=== PATIENT | female | born 1985 | race Caucasian/White ===

== ENCOUNTER 2016-06-20 16:53 | Emergency (ER) | payer BC ==
[2016-06-20] MEDS ORDERED: NORMAL SALINE 1,000 ML IV PRN (17:17)
--- NOTE | 2016-06-20 17:24 | ERNOTE ---
Medical Problem HPI - Narrative Date of Service: 06/20/16 - General Chief Complaint: Drug Overdose Time Seen by Provider: 06/20/16 17:08 Source: patient, RN notes reviewed Exam Limitations: no limitations - Immun/Allergies/Home Medications Immunizations: IMMUNIZATION HX Immunizations Up to Date Yes History of Influenza Vaccine No Allergies/Adverse Reactions: Allergies No Known Allergies Allergy (Verified 11/13/15 05:03) Home Medications: HOME MEDICATIONS Escitalopram Oxalate [Lexapro] 20 mg PO DAILY 05/01/15 [Last Taken Unknown] ALPRAZolam [Xanax] 1 mg PO TID PRN 11/13/15 [Last Taken Unknown] Acetaminophen with Codeine [Tylenol with Codeine #3 Tablet] 1 each PO Q6H PRN # 14 tab 11/13/15 [Last Taken Unknown] - History of Present History Narrative: Patient presents with intentional overdose. Patient who says she has been upset and depressed, she is under a lot of stress. Prior to going to work she took extra pills of her Xanax. Normally she supposed to take 1 mg 3 times a day , just prior to going to work she took 7-8 tablets at one time, then she took 2- 3 more tablets while at work total of at least 10 mg. She feels very depressed , doesn't feel like she wants to live, she is suicidal with an intention to hurt herself. She does see a psychiatrist they have been working on her medications. She also states for the past week she's been drinking alcohol quite a bit. Patient denies any abdominal pain chest pain headache. She is very upset while in the ER a friend is by here at bedside. Date (Duration): 06/20/16 Timing: constant Review of Systems - Review of Systems Constitutional: Absent: recent illness, fever, chills, diaphoresis EYE: Absent: no symptoms reported ENT: Absent: no symptoms reported Respiratory: Absent: no symptoms reported, shortness of breath, wheezing Cardiology: Absent: chest pain, palpitations, syncope, edema Gastrointestinal/Abdominal: Present: no symptoms reported Genitourinary: Present: no symptoms reported Musculoskeletal: Present: no symptoms reported Skin: Present: no symptoms reported Neurological: Present: anxiety, depressed - suicidal thoughts with intentions to hurt herself, emotional problems Endocrine: Present: no symptoms reported - Patient's Past Medical History Patient History - Medical: No pertinent hx Patient History - Cancer: No Hx of Cancer Patient History - Surgical Procedures: Cholecystectomy LMP (females 10-50): now - Family History Father Family History - Medical: No pertinent hx, Diabetes Type 2 Family History - Cardiac/Respiratory: Hypertension, Hyperlipidemia - Social History Living Situations: significant other Have you smoked in the past 12 months: Yes Do you dip or chew tobacco: No Patient requests Smoking Cessation Consult: No Alcohol Use: heavy Drug Use: none Physical Exam - Physical Exam General Appearance: Present: wd/wn, no apparent distress, crying Eye Exam: Normal inspection: bilateral Ears, Nose, Throat: Present: normal ENT inspection, normal pharynx Neck: Present: normal inspection, nontender, supple, full range of motion Respiratory: Present: no respiratory distress, normal breath sounds, no accessory muscle use, chest nontender, lungs clear Cardiovascular/Chest: Present: regular rate, rhythm, no murmur, normal peripheral pulses Gastrointestinal/Abdominal: Present: normal bowel sounds, nontender, nondistended, soft, no organomegaly Rectal Exam: Present: normal rectal tone Back Exam: Present: normal inspection, normal range of motion, no CVA tenderness , no vertebral tenderness Extremity Exam: Present: normal inspection, non-tender, no edema, normal range of motion Neurological Exam: Present: alert, oriented, no motor/sensory deficits Skin Exam: Present: normal color, warm/dry Lymphatic Exam: Present: no adenopathy ED Progress - Results and Orders Patient's Lab Results:: I have reviewed the patient's lab results. - Vital Signs Patient's Vital Signs:: I have reviewed the patient's vital signs. Vital Signs: Vital Signs 06/20/16 16:56 Temperature 35.7 C L Pulse Rate 114 H Respiratory 16 Rate Blood Pressure 120/91 - EKG EKG: NSR, nonspecific ST T wave changes EKG read: Reviewed by me EKG Comments: Heart rate 95 no acute changes - Progress/Reassessment Chief Complaint: Drug Overdose Progress:: Improved Progress Note-Subjective: 06/20/16 19:44 Patient doing very well. We'll go ahead and medically clear this patient continue to watch her on cardiac rehabilitation program director and then find placement for this patient. Transfer care will be to Dr. Fransisca Kline, patent will need psychiatric evaluation she wants to go voluntarily. If this status changes we may need to get a court committal. - Transfer of Care Receiving Physician: Shannan Nelson Additional Notes: Awaiting for placement for this patient patient very stable Departure - Departure Clinical Impression: Overdose, Suicide attempt Disposition: Other health care facility Condition: Stable
[2016-06-20 17:42] LABS: Hematocrit 42.5 % (37.0-47.0); Hemoglobin 14.3 gm/dL (12.5-16.0); Mean Cell Volume 89.1 fl (78-100); Mean Corpuscular Hgb Conc 33.6 g/dl (32-36); Mean Platelet Volume 11.9 fl (6.0-9.5); Neutrophil # 6.6 K/mm3 (1.3-6.0); Neutrophil % 69.9 % (42-75.0); Platelet Count 174 K/mm3 (150-450); Red Blood Count 4.77 M/mm3 (4.2-5.4); Red Cell Distribution Width 13.2 % (11.5-14.0); White Blood Count 9.4 K/mm3 (4.0-10.5)
[2016-06-20 17:49] LABS: Urine Bilirubin Negative (NEGATIVE); Urine Blood 50 /ul (NEGATIVE); Urine Ketone Negative (NEGATIVE); Urine Nitrite Negative (NEGATIVE); Urine Protein 15 mg/dL (NEGATIVE); Urine Specific Gravity 1.025 SP.GR. (1.005-1.010); Urine Urobilinogen Normal (NORMAL); Urine pH 6.5 pH (5.0-7.0)
[2016-06-20 17:56] LABS: ALT 115 U/L (19-67); AST 69 U/L (0-48); Acetaminophen * 2.2 mcg/mL (10.0-30.0); Alkaline Phosphatase * 64 U/L (50-170); Anion Gap 10.4 mmol/L (6.8-13.8); BUN/Creatinine Ratio 10.6 (9.0-21.6); Bilirubin, Total 0.5 mg/dL (0.0-1.1); Blood Urea Nitrogen 11 mg/dL (3-23); Ca. Corrected For Albumin 8.8 mg/dL (8.4-10.2); Calcium * 9.1 mg/dL (7.9-10.9); Carbon Dioxide 30.3 mmol/L (24-32.6); Chloride 102 mmol/L (97-106); Glucose * 95 mg/dL (70-110); Potassium 3.7 mmol/L (3.4-4.6); Salicylate 4.9 mg/dL (2.8-20.0); Sodium 139 mmol/L (132-142); Total Protein 7.6 gm/dL (6.2-8.2)
[2016-06-20 18:00] LABS: Urine Appearance Clear; Urine Bacteria TRACE; Urine Color Yellow; Urine RBC 0-5 /hpf (0-5); Urine WBC None Seen /hpf (0-5)
[2016-06-20 18:01] LABS: Cocaine Ur Negative (NEGATIVE); Urine Barbiturate Negative (NEGATIVE); Urine Opiates Negative (NEGATIVE); Urine PCP Negative (NEGATIVE); Urine THC Negative (NEGATIVE)
[2016-06-20 18:07] LABS: Urine Benzodiazepines Positive (NEGATIVE)
[2016-06-20] MEDS ORDERED: NICOTINE 21 MG PATC TD SCH (19:15)
[2016-06-20] MEDS ORDERED: NICOTINE 21 MG PATC TD ONE (19:15)
[2016-06-21] MEDS ORDERED: NORMAL SALINE 1,000 ML IV ONE (00:48)
[2016-06-21 08:26] VITALS: BP 138/90
== END 2016-06-21 09:14 | disposition short-term general hospital (02) ==
LOC: ER 16:53
DX: T42.4X2A Poisoning by benzodiazepines, intentional self-harm, initial encounter (principal); R45.851 Suicidal ideations; F17.200 Nicotine dependence, unspecified, uncomplicated; Z90.49 Acquired absence of other specified parts of digestive tract
CPT/HCPCS: 36415; 80053; 80320; 81001; 84443; 84702; 85025; 93005; 94760; 99283; G0479; G0480

== ENCOUNTER 2016-11-01 13:07 | Emergency (ER) | payer BC ==
--- OUTSIDE RECORDS SUMMARY | 2016-11-01 13:47 | XMS REPORT | Continuity of Care Document ---
:1985 Author Organization [employer] [place] [address] Care Team Providers Name Role Phone Unavailable Primary Care Provider Unavailable Source Comments This disclosure is being made pursuant to the [employer] program and maynot contain all information available regarding this patient.[employer] Active Allergies and Adverse Reactions Not on File Current Medications Be aware that medications may not be up to date as of this document. Alwaysverify current medications with the patient. Not on file Active Problems Not on file Social History Tobacco Use Types Packs/Day Years Used Date Never Assessed Plan of Care Health Maintenance Due Date Last Done Comments Tetanus/Pertussis (1 - Tdap) 2005 Pap Smear 2007 Retired-INFLUENZA VACCINE 02/07/2016 Results from Last 3 Months Not on file
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
[2016-11-01 14:08] LABS: Hematocrit 37.4 % (37.0-47.0); Hemoglobin 13.2 gm/dL (12.5-16.0); Mean Cell Volume 88.2 fl (78-100); Mean Corpuscular Hemoglobin 31.1 pg (27-31); Mean Corpuscular Hgb Conc 35.3 g/dl (32-36); Mean Platelet Volume 13.2 fl (6.0-9.5); Neutrophil # 11.2 K/mm3 (1.3-6.0); Neutrophil % 79.2 % (42-75.0); Platelet Count 160 K/mm3 (150-450); Red Blood Count 4.24 M/mm3 (4.2-5.4); Red Cell Distribution Width 13.2 % (11.5-14.0); White Blood Count 14.2 K/mm3 (4.0-10.5)
[2016-11-01 14:21] LABS: Albumin * 3.3 gm/dl (3.4-5.0); Anion Gap 15.5 mmol/L (6.8-13.8); BUN/Creatinine Ratio 7.7 (9.0-21.6); Bilirubin, Total 0.4 mg/dL (0.0-1.1); Ca. Corrected For Albumin 9.6 mg/dL (8.4-10.2); Calcium * 9.4 mg/dL (7.9-10.9); Carbon Dioxide 24.5 mmol/L (24-32.6); Total Protein 7.3 gm/dL (6.2-8.2)
[2016-11-01 15:23] VITALS: BP 122/71
== END 2016-11-01 15:59 | disposition home or self-care (01) ==
LOC: ER 13:07
DX: N83.202 Unspecified ovarian cyst, left side (principal); O46.91 Antepartum hemorrhage, unspecified, first trimester; Z3A.13 13 weeks gestation of pregnancy; Z33.1 Pregnant state, incidental

== ENCOUNTER 2017-02-16 18:05 | Emergency (ER) | payer BC ==
[2017-02-16 18:14] VITALS: BP 125/76
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
[2017-02-16] MEDS ORDERED: hydrOXYzine PAMOATE 25 MG CAPSULE PO ONE ×2 (19:30→19:33)
[2017-02-16] MEDS ORDERED: hydrOXYzine PAMOATE 25 MG CAPSULE ONE ×2 (19:31→19:32)
== END 2017-02-16 19:40 | disposition home or self-care (01) ==
LOC: ER 18:05
DX: O99.343 Other mental disorders complicating pregnancy, third trimester (principal); F17.200 Nicotine dependence, unspecified, uncomplicated; Z3A.29 29 weeks gestation of pregnancy

== ENCOUNTER 2017-04-28 00:02 | Inpatient (IN) | payer BC ==
[2017-04-28] MEDS ORDERED: LIDOCAINE HCL 50 ML VIAL PERI PRN (00:55)
[2017-04-28] MEDS ORDERED: ONDANSETRON HCL/PF 2 MG/ML VIAL IV PRN ×2 (00:55→15:23)
[2017-04-28] MEDS ORDERED: RINGER'S SOLUTION,LACTATED 1,000 ML IV ONE (00:55)
[2017-04-28] MEDS ORDERED: DEXTROSE 5%-LACTATED RINGERS 1,000 ML IV PRN (00:55)
[2017-04-28] MEDS ORDERED: INSULIN REGULAR HUMAN REC 100 UNITS in NORMAL SALINE 100 ML IV PRN (00:55)
[2017-04-28] MEDS ORDERED: PENICILLIN G POTASSIUM 5 MILLIONUNT in DEXTROSE 5 % IN WATER 100 ML IV ONE ×2 (00:55)
[2017-04-28] MEDS ORDERED: OXYTOCIN/DEXTROSE 5%-WATER 30 UNITS/500 ML BAG IV ONE ×2 (00:55→18:27)
[2017-04-28 01:05] LABS: Hemoglobin 12.9 gm/dL (12.5-16.0); Mean Cell Volume 89.4 fl (78-100); Mean Corpuscular Hemoglobin 31.2 pg (27-31); Mean Corpuscular Hgb Conc 34.9 g/dl (32-36); Mean Platelet Volume 14.9 fl (6.0-9.5); Platelet Count 150 K/mm3 (150-450); Red Blood Count 4.14 M/mm3 (4.2-5.4); Red Cell Distribution Width 14.2 % (11.5-14.0); White Blood Count 21.7 K/mm3 (4.0-10.5)
[2017-04-28 01:12] LABS: Total Cells Counted 100
[2017-04-28] MEDS: MISOPROSTOL 100 MCG TABLET VG PRN ×2 (01:21→05:25)
[2017-04-28 01:35] LABS: Cocaine Ur Negative (NEGATIVE); Urine Barbiturate Negative (NEGATIVE); Urine Benzodiazepines Negative (NEGATIVE); Urine Opiates Negative (NEGATIVE); Urine PCP Negative (NEGATIVE); Urine THC Negative (NEGATIVE)
[2017-04-28 01:43] LABS: Atypical (Reactive) Lymph 4 % (0-2); Eosinophil 1 % (0-3); Giant Platelets 2+; Lymphocyte 17 % (20-51); Monocyte 10 % (0-9); Neutrophil 68 % (42-75); Neutrophil # 14.8 K/mm3 (1.3-6.0); Platelet Estimate Normal (NORMAL)
[2017-04-28 01:44] LABS: RBC Morphology Normal (NORMAL)
[2017-04-28] MEDS: PENICILLIN G POTASSIUM 2.5 MILLIONUNT in DEXTROSE 5 % IN WATER 100 ML IV SCH ×6 (06:00→13:59)
--- NOTE | 2017-04-28 09:03 | PN ---
Progess Note - Interim Narrative: 04/28/17 08:57 Patient rating her contractions 3 out of 10 Vital signs stable. Blood sugar 75 Status post 2 doses of Cytotec (last dose at 5:30 AM) FHT: 130 baseline, reassuring Contractions q 1-2 min Cervix: 3/50/-2, Impression: Intrauterine at 39 weeks induction of labor for gestational diabetes. GBS positive-status post 2 doses of penicillin Plan: Continue present plan
[2017-04-28] MEDS ORDERED: NALOXONE HCL 1 MG/1 ML SYRG IV PRN (15:23)
[2017-04-28] MEDS ORDERED: BUPIVACAINE HCL/0.9 % NACL/PF 250 ML EP PRN (15:23)
[2017-04-28] MEDS ORDERED: fentaNYL CITRATE/PF 50 MCG/ML AMPUL IT SCH (15:30)
--- NOTE | 2017-04-28 15:54 | OR ---
Anesthesia Procedure Note - Anesthesia Procedure Note Narrative: Vital Signs - Last Taken Temp Pulse 106 H 04/28/17 15:27 Resp 18 04/28/17 15:27 BP 125/73 04/28/17 15:27 Pulse Ox 98 04/28/17 15:27 04/28/17 15:52 ANESTHESIA PROCEDURE NOTE Date of Procedure: 04/28/2017 Time of procedure: 1540. Performed by: Wisam Blunt CRNA Decorator Mannequin: None. Preprocedure diagnosis: Active labor. Post procedure diagnosis: Same. Procedure: Insertion of labor epidural. Indications: The patient is a 31 -year-old multigravida female in active labor requesting labor epidural for pain management. Findings: See below. Details of the procedure: The patient was placed in a sitting position. Back was prepped with DuraPrep. Patient was then draped in a sterile fashion. Lidocaine 1% was infiltrated to the skin and subcutaneous tissues at the level of the L3 4 interspace. The epidural space was identified using a 18-gauge Tuohy needle with [id number] technique. 20 mcg fentanyl was given intrathecally using a 27 ga. spinal needle. Epidural catheter was inserted without difficulty. Negative test dose was elicited using 5 mL of 1.5% preservative-free lidocaine plus epinephrine 1 200,000. The epidural catheter was then taped and secured in place. EBL: Minimal. Fluids: N/A. Specimen: N/A. Post procedure condition: The patient tolerated the procedure well. No complications were noted. Thank you for this consultation. Solano CRNA
--- NOTE | 2017-04-28 18:24 | OR ---
Operative Report - Dictated Report Narrative: Spontaneous vaginal delivery of viable female at 1803 on 04/27/2017 with Apgars 8 and 8, weighing 3039 g in DEMETRICE position with nuchal cord 1 and foot cord 1. Cord clamping delayed approximately 1 minute Placenta delivered complete, intact, with three vessel cord Estimated blood loss: less than 50 ml Lacerations: None
[2017-04-28] MEDS ORDERED: GLYCERIN/WITCH HAZEL LEAF 40 APPL BOX TP PRN (18:27)
[2017-04-28] MEDS ORDERED: BENZOCAINE/MENTHOL 81 SPRAY CAN TP PRN (18:27)
[2017-04-28] MEDS ORDERED: HYDROCORTISONE 30 APPL TUBE TP PRN (18:27)
[2017-04-28] MEDS ORDERED: oxyCODONE HCL/ACETAMINOPHEN 1 TAB TABLET PO PRN (18:27)
[2017-04-28] MEDS ORDERED: SENNOSIDES 8.6 MG TABLET PO PRN (18:27)
[2017-04-28] MEDS ORDERED: BISACODYL 10 MG SUPP.RECT RC PRN (18:27)
[2017-04-28] MEDS: IBUPROFEN 800 MG TABLET PO PRN (19:03)
[2017-04-28] MEDS: DOCUSATE SODIUM 100 MG CAPSULE PO SCH (21:15)
[2017-04-29] MEDS: oxyCODONE HCL/ACETAMINOPHEN 1 TAB TABLET PO PRN ×2 (01:18→19:53)
[2017-04-29] MEDS ORDERED: FLUoxetine HCL 20 MG CAPSULE PO SCH (09:00)
[2017-04-29] MEDS ORDERED: FOLIC ACID PO SCH (09:00)
[2017-04-29] MEDS ORDERED: CYANOCOBALAMIN PO SCH (09:00)
[2017-04-29] MEDS ORDERED: PRENATAL VITS96/IRON FUM/FOLIC 1 TAB TABLET PO SCH (09:00)
[2017-04-29] MEDS ORDERED: ASCORBIC ACID PO SCH (09:00)
[2017-04-29] MEDS ORDERED: IRON PO SCH (09:00)
[2017-04-29] MEDS ORDERED: Brexpiprazole [Rexulti] 4 MG PO SCH (09:00)
[2017-04-29] MEDS: IBUPROFEN 800 MG TABLET PO PRN (09:32)
[2017-04-29] MEDS: DOCUSATE SODIUM 100 MG CAPSULE PO SCH (09:32)
--- NOTE | 2017-04-29 09:49 | PN ---
Jeramy Note - Interim Narrative: 04/29/17 09:48 progress note Subjective: The patient is doing well. She is ambulating, voiding, tolerating by mouth. She has minimal pain and moderate lochia. Objective: General: No acute distress Abdomen: Soft, nontender, fundus is firm just below the umbilicus Extremities: minimal edema, nontender to palpation Assessment and plan: day 1 Feeding: Bottle Pain: Controlled with by mouth medication Gestational diabetes: Blood sugars within normal limits today, continue to monitor Routine care.
[2017-04-30] MEDS: DOCUSATE SODIUM 100 MG CAPSULE PO SCH (01:08)
[2017-04-30] MEDS: IBUPROFEN 800 MG TABLET PO PRN (06:01)
[2017-04-30 08:00] VITALS: BP 122/58
--- NOTE | 2017-04-30 10:25 | PN ---
Progess Note - Interim Narrative: 04/30/17 10:24 progress note Subjective: The patient is doing well. She is ambulating, voiding, tolerating by mouth. She has minimal pain and moderate lochia. Objective: General: No acute distress Abdomen: Soft, nontender, fundus is firm just below the umbilicus Extremities: minimal edema, nontender to palpation Assessment and plan: day 2 Feeding: Bottle Pain: Controlled with by mouth medication Routine care.
== END 2017-04-30 10:50 | disposition home or self-care (01) | DRG 775 ==
LOC: OB 00:02
PROVIDERS: ADMIT Obstetrics & Gynecology; ATTEND Obstetrics & Gynecology
PROC: 10E0XZZ Delivery of Products of Conception, External Approach (ICD-10-PCS; principal; 2017-04-28)
PROC: 4A1HXCZ Monitoring of Products of Conception, Cardiac Rate, External Approach (ICD-10-PCS; 2017-04-28)
PROC: 00HU33Z Insertion of Infusion Device into Spinal Canal, Percutaneous Approach (ICD-10-PCS; 2017-04-28)
DX: O24.425 Gestational diabetes mellitus in childbirth, controlled by oral hypoglycemic drugs (principal); O99.12 Other diseases of the blood and blood-forming organs and certain disorders involving the immune mechanism complicating childbirth; O99.824 Streptococcus B carrier state complicating childbirth; D69.6 Thrombocytopenia, unspecified; O69.81X0 Labor and delivery complicated by cord around neck, without compression, not applicable or unspecified; F41.9 Anxiety disorder, unspecified; F32.9 Major depressive disorder, single episode, unspecified; Z3A.39 39 weeks gestation of pregnancy; Z37.0 Single live birth

== ENCOUNTER 2017-06-04 07:58 | Day surgery (SDC) | payer BC, MEDICAID ==
[~2017-06-04 07:58] MED LIST: RINGER'S SOLUTION,LACTATED 1,000 ML IV PRN
[2017-06-04] MEDS ORDERED: LIDOCAINE HCL/EPINEPHRINE 50 ML VIAL IJ ONE (09:40)
[2017-06-04] MEDS ORDERED: RINGER'S SOLUTION,LACTATED 1,000 ML IV ONE (09:45)
--- NOTE | 2017-06-04 09:53 | OR ---
Operative Report - Dictated Report Narrative: INDICATION: 31 year old female desires permanent sterilization PREOPERATIVE DIAGNOSIS: Multiparity, desires permanent sterilization POSTOPERATIVE DIAGNOSIS: Multiparity, desires permanent sterilization OPERATION: Laparoscopic bilateral tubal fulguration SURGEON: Nella Contreras D.O. DRIER OPERATOR HELPER: Alec ANESTHESIA: General ESTIMATED BLOOD LOSS: Minimal FLUID REPLACEMENT: 600 mL URINE OUTPUT: Not measured FINDINGS: Normal uterus, tubes, and ovaries. Normal appendix, anterior/ posterior cul-de-sac, and liver edge SPECIMEN(S): None DRAINS: none TECHNIQUE: The patient was taken to the operating room and placed in dorsal lithotomy position after adequate general anesthesia was obtained. The anterior lip of the cervix was grasped with a long Allis clamp and a Valchev manipulator was inserted into the cervical canal and attached to the Allis clamp as a means to manipulate the uterus. Bladder was drained prior to patient entering the OR. Gloves were changed and attention was turned to the abdomen. A 1% lidocaine epinephrine solution was injected into the skin and through the underlying layers of the abdomen at the umbilicus. A scalpel was used to score the skin and a 5 mm non-bladed trocar was inserted via direct technique under direct visualization. Pneumoperitoneum was created with CO2 gas. Using the operative scope, a survey of the abdominal cavity revealed findings as noted above. The right fallopian tube was identified and followed out to the fimbriated end. Approximately 3 cm of the fallopian tube was coagulated with the Kleppinger's approximately 2 cm from the cornual region. The exact same was done on the patient's left side. The CO2 gas was removed from the abdominal cavity. The trocar was removed under direct visualization. The skin of both incisions was closed with 4-0 Monocryl and Dermabond. Instruments were removed from the cervix and vagina. Sponge, lap, instrument, and needle count were correct x 2. DISPOSITION: The patient was awakened and transferred to post anesthesia care unit in good condition.
[2017-06-04] MEDS ORDERED: MORPHINE SULFATE 2 MG/ML DISP.SYRIN IV PRN (11:11)
[2017-06-04] MEDS ORDERED: RINGER'S SOLUTION,LACTATED 1,000 ML IV PRN (11:11)
[2017-06-04] MEDS ORDERED: oxyCODONE HCL/ACETAMINOPHEN 1 TAB TABLET PO PRN (11:12)
[2017-06-04] MEDS ORDERED: IBUPROFEN 800 MG TABLET PO PRN (11:13)
[2017-06-04 12:02] VITALS: BP 105/65
== END 2017-06-04 07:59 | disposition home or self-care (01) ==
LOC: AMB 07:58
PROVIDERS: ATTEND Obstetrics & Gynecology
PROC: 0U574ZZ Destruction of Bilateral Fallopian Tubes, Percutaneous Endoscopic Approach (ICD-10-PCS; principal; 2017-06-04 09:30)
DX: Z30.2 Encounter for sterilization (principal); F41.9 Anxiety disorder, unspecified; F32.9 Major depressive disorder, single episode, unspecified; F17.200 Nicotine dependence, unspecified, uncomplicated; Z68.26 Body mass index [BMI] 26.0-26.9, adult